=== PATIENT | female | born 1955 | race Caucasian/White ===

== ENCOUNTER 2017-06-21 15:52 | Emergency (ER) | payer OTHER ==
[~2017-06-21] VITALS: Ht 160 cm; Wt 86.6 kg
[~2017-06-21 15:52] MED LIST: WEL75 PO; ZOC10 PO
[2017-06-21 15:55] VITALS: Ht 160 cm; Wt 86.6 kg
[2017-06-21 18:22] VITALS: BP 152/82
== END 2017-06-21 18:22 | disposition home or self-care (01) ==
LOC: ED 15:52
DX: M16.12 Unilateral primary osteoarthritis, left hip (principal); I10 Essential (primary) hypertension; E78.00 Pure hypercholesterolemia, unspecified; F32.9 Major depressive disorder, single episode, unspecified
CPT/HCPCS: J1885

== ENCOUNTER 2018-03-31 19:38 | Inpatient (IN) | payer OTHER ==
[~2018-03-31] VITALS: Ht 162.6 cm; Wt 101.2 kg
[2018-03-31 19:42] VITALS: Ht 162.6 cm; Wt 101.2 kg
[2018-03-31 22:09] LABS: CALCIUM 8.9 mg/dL (8.5-10.1); CARBON DIOXIDE 27.6 mmol/L (21-32); CHLORIDE SERUM 105 mmol/L (98-107); CREATININE SERUM 0.9 mg/dL (0.6-1.0); GFR1 > 60 mL/min; GLUCOSE SERUM 94 mg/dL (74-106); POTASSIUM SERUM 3.7 mmol/L (3.5-5.1); SODIUM SERUM 142 mmol/L (136-145)
[2018-03-31 22:12] LABS: BASOPHIL % 0.7 % (0-2); PLATELET COUNT 250 x10^3mcL (130-400); RED CELL DISTRIBUTION WIDTH 14.4 % (11.5-14.5)
[2018-03-31 22:23] LABS: FREE T4 0.99 ng/dL (0.76-1.46)
[2018-03-31 23:18] LABS: UA SPECIFIC GRAVITY >=1.030 (1.005-1.035); microscopic required? YES; urine erythrocyte 1+ (NEGATIVE)
[2018-03-31] MEDS ORDERED: ZESTORETIC1 TA1 PO (23:45)
[2018-04-01 01:05] VITALS: BP 148/78
[2018-04-01 02:40] LABS: CHOLESTEROL/HDL RATIO 3.4; MAGNESIUM 1.8 mg/dL (1.8-2.4); PHOSPHOROUS 4.5 mg/dL (2.5-4.9)
[2018-04-01 05:47] VITALS: BP 120/57
[2018-04-01 06:29] LABS: BASOPHIL % 0.4 % (0-2); PLATELET COUNT 227 x10^3mcL (130-400)
[2018-04-01 07:05] LABS: CALCIUM 8.4 mg/dL (8.5-10.1); CARBON DIOXIDE 27.6 mmol/L (21-32); CHLORIDE SERUM 106 mmol/L (98-107); CREATININE SERUM 0.8 mg/dL (0.6-1.0); GFR1 > 60 mL/min; GLUCOSE SERUM 84 mg/dL (74-106); POTASSIUM SERUM 3.6 mmol/L (3.5-5.1); RED CELL DISTRIBUTION WIDTH 14.6 % (11.5-14.5); SODIUM SERUM 143 mmol/L (136-145)
[2018-04-01 08:22] VITALS: BP 112/54
[2018-04-01 12:40] VITALS: BP 144/77
[2018-04-01 16:50] VITALS: BP 123/69
[2018-04-01 21:03] VITALS: BP 133/76
[2018-04-02 06:16] LABS: BASOPHIL % 0.7 % (0-2); PLATELET COUNT 212 x10^3mcL (130-400)
[2018-04-02 06:27] LABS: CALCIUM 8.4 mg/dL (8.5-10.1); CARBON DIOXIDE 25.2 mmol/L (21-32); CHLORIDE SERUM 108 mmol/L (98-107); CREATININE SERUM 0.7 mg/dL (0.6-1.0); GFR1 > 60 mL/min; GLUCOSE SERUM 92 mg/dL (74-106); MAGNESIUM 2.1 mg/dL (1.8-2.4); PHOSPHOROUS 3.9 mg/dL (2.5-4.9); POTASSIUM SERUM 3.8 mmol/L (3.5-5.1); SODIUM SERUM 140 mmol/L (136-145)
[2018-04-02 06:57] LABS: RED CELL DISTRIBUTION WIDTH 14.9 % (11.5-14.5)
[2018-04-02 07:57] VITALS: BP 141/85
[2018-04-02] MEDS ORDERED: LISINOPRIL40 MG PO (10:33)
[2018-04-02 12:05] VITALS: BP 140/68
[2018-04-02 12:23] VITALS: BP 140/68
== END 2018-04-02 15:41 | disposition home or self-care (01) | DRG 71 ==
LOC: ED 19:38 → MU 23:57 → DU 23:57
PROVIDERS: Emergency Medicine; Family Medicine
DX: G98.8 Other disorders of nervous system (principal); Z68.41 Body mass index [BMI] 40.0-44.9, adult; E44.0 Moderate protein-calorie malnutrition; F32.9 Major depressive disorder, single episode, unspecified; I10 Essential (primary) hypertension; E89.0 Postprocedural hypothyroidism; T50.995A Adverse effect of other drugs, medicaments and biological substances, initial encounter; E78.00 Pure hypercholesterolemia, unspecified; E02 Subclinical iodine-deficiency hypothyroidism; Z82.3 Family history of stroke; Y92.89 Other specified places as the place of occurrence of the external cause; Z90.710 Acquired absence of both cervix and uterus
CPT/HCPCS: 83880; 84439; 97116-GP; J8597; Q0092